=== PATIENT | female | born 1980 | race Two or more races ===

== ENCOUNTER 2024-02-29 15:30 | Inpatient (IN) | payer OTHER ==
[~2024-02-29] VITALS: Ht 157.5 cm; Wt 84.8 kg
[2024-03-11] MEDS ORDERED: LIDOCAINE HCL 1%/EPINEPHRINE 20ML VIAL IJ ONE (10:15)
[2024-03-11] MEDS ORDERED: METRONIDAZOLE/SODIUM CHLORIDE 500 MG/100 ML PIGGYBACK IV ONE (10:15)
[2024-03-11] MEDS ORDERED: CEFTRIAXONE SODIUM 2,000 MG VIAL IV ONE (10:15)
[2024-03-11] MEDS ORDERED: BUPIVACAINE HCL 30 ML VIAL IJ ONE (10:15)
[2024-03-11] MEDS ORDERED: OxyCODONE HCL 5 MG TABLET (ROXICODONE) PO PRN (11:45)
[2024-03-11] MEDS ORDERED: ONDANSETRON HCL 2 MG/ML VIAL IV PRN (11:45)
[2024-03-11] MEDS ORDERED: MORPHINE SULFATE 4 MG/ML CARTRIDGE IV PRN (11:45)
[2024-03-11] MEDS ORDERED: RINGERS SOLUTION,LACTATED 1,000 ML IV SCH (11:45)
[2024-03-11] MEDS ORDERED: OxyCODONE HCL/APAP UD (PERCOCET) PO PRN (11:45)
[2024-03-11] MEDS ORDERED: ACETAMINOPHEN 500 MG GEL..CAP PO SCH (12:00)
[2024-03-11] MEDS ORDERED: SIMETHICONE 125 MG CAPSULE PO SCH (13:00)
[2024-03-11] MEDS ORDERED: MORPHINE SULFATE 4 MG/ML VIAL IV ONE ×2 (13:10→13:40)
[2024-03-11] MEDS ORDERED: ONDANSETRON HCL 2 MG/ML VIAL IV ONE (13:20)
[2024-03-11 13:38] LABS: HEMOGLOBIN 12.2 g/dL (12.0-15.00); MEAN CELL VOLUME 78.7 fL (80.00-100.00); PLATELET COUNT 381 K/uL (150-450); RED CELL DISTRIBUTION WIDTH 16.2 % (11.5-14.5)
[2024-03-11 13:55] LABS: ALBUMIN 3.3 gm/dL (3.4-5.0); CALCIUM 8.8 mg/dL (8.5-10.1); CREATININE SERUM 0.61 mg/dL (0.55-1.02); GFR 107.05; MAGNESIUM 1.6 mg/dL (1.8-2.4); PHOSPHOROUS 3.6 mg/dL (2.5-4.9); POTASSIUM 4.39 mEq/L (3.5-5.1)
[2024-03-11] MEDS ORDERED: POLYETHYLENE GLYCOL 3350 17 GM BLIST.PACK PO SCH (17:00)
[2024-03-11] MEDS ORDERED: GABAPENTIN 300 MG CAPSULE PO SCH (17:00)
[2024-03-11] MEDS ORDERED: FAMOTIDINE/PF 20 MG/10 ML SYRINGE IV PUSH SCH (21:00)
[2024-03-11] MEDS ORDERED: MAGNESIUM SULFATE 50% 1,000 MG/2 ML VIAL IV ONE (21:45)
[2024-03-12 06:10] LABS: HEMATOCRIT 35.7 % (36.0-45.00); HEMOGLOBIN 11.8 g/dL (12.0-15.00); MEAN CELL VOLUME 78.8 fL (80.00-100.00); MEAN CORPUSCULAR HEMOGLOBIN 26.1 pg (27.00-32.0); MEAN CORPUSCULAR HGB CONC 33.1 g/dl (32.0-36.0); PLATELET COUNT 357 K/uL (150-450); RED BLOOD COUNT 4.53 M/uL (4.00-6.00); RED CELL DISTRIBUTION WIDTH 16.3 % (11.5-14.5)
[2024-03-12 06:38] LABS: CALCIUM 8.7 mg/dL (8.5-10.1); CREATININE SERUM 0.4 mg/dL (0.55-1.02); GFR 174.21; MAGNESIUM 2.5 mg/dL (1.8-2.4); PHOSPHOROUS 3.1 mg/dL (2.5-4.9); POTASSIUM 4.24 mEq/L (3.5-5.1)
[2024-03-12] MEDS ORDERED: MAGNESIUM CHLORIDE 70 MG TABLET.DR PO SCH (09:00)
[2024-03-12] MEDS ORDERED: LACTOBACILLUS ACIDOPHILUS 1 CAP CAP PO SCH (09:00)
[2024-03-12] MEDS ORDERED: NAPH,MB-DB/K PH,MBDB 1 PKT PACKET PO SCH (13:00)
[2024-03-12] MEDS ORDERED: ENOXAPARIN SODIUM 40 MG/0.4 ML SYRINGE SUBCUTANEO SCH (17:00)
[2024-03-12] MEDS ORDERED: FAMOtidine 20 MG TABLET PO SCH (17:00)
[2024-03-13 07:30] LABS: HEMOGLOBIN 11.2 g/dL (12.0-15.00); MEAN CELL VOLUME 79.1 fL (80.00-100.00); MEAN CORPUSCULAR HGB CONC 32.9 g/dl (32.0-36.0); PLATELET COUNT 307 K/uL (150-450); RED CELL DISTRIBUTION WIDTH 16.2 % (11.5-14.5)
[2024-03-13 07:52] LABS: ALBUMIN 2.9 gm/dL (3.4-5.0); CALCIUM 8.1 mg/dL (8.5-10.1); CREATININE SERUM 0.45 mg/dL (0.55-1.02); GFR 152.07; MAGNESIUM 1.9 mg/dL (1.8-2.4); PHOSPHOROUS 2.3 mg/dL (2.5-4.9); POTASSIUM 3.92 mEq/L (3.5-5.1)
[2024-03-13] MEDS ORDERED: NAPH,MB-DB/K PH,MBDB 1 PKT PACKET PO SCH (13:00)
[2024-03-13] MEDS ORDERED: POTASSIUM PHOS,M-BASIC-D-BASIC 9 MM in 0.9 % SODIUM CHLORIDE 250 ML IV ONE (13:00)
== END 2024-03-13 17:07 | disposition home or self-care (01) | DRG 331 ==
LOC: O/R 03-11 05:35 → SURG 03-11 07:00 → SURH 03-11 13:59 → SURG 03-11 15:00 → SURH 03-13 17:07
PROVIDERS: ADMIT Colon & Rectal Surgery; ATTEND Colon & Rectal Surgery
PROC: 0DBP4ZZ Excision of Rectum, Percutaneous Endoscopic Approach (ICD-10-PCS; 2024-03-11)
PROC: 0DJD8ZZ Inspection of Lower Intestinal Tract, Via Natural or Artificial Opening Endoscopic (ICD-10-PCS; 2024-03-11)
PROC: 0DTN4ZZ Resection of Sigmoid Colon, Percutaneous Endoscopic Approach (ICD-10-PCS; principal; 2024-03-11 07:00)
DX: K57.20 Diverticulitis of large intestine with perforation and abscess without bleeding (principal); R10.32 Left lower quadrant pain

== ENCOUNTER 2024-03-06 08:23 | Day surgery (SDC) | payer OTHER ==
[2024-03-06] MEDS ORDERED: ONDANSETRON HCL 2 MG/ML VIAL IV ONE (14:00)
[2024-03-06] MEDS ORDERED: DIPHENHYDRAMINE HCL 50 MG/ML VIAL 1ML IV ONE (14:00)
[2024-03-06] MEDS ORDERED: fentaNYL CITRATE 50 MCG/ML AMPUL IV PUSH ONE (14:00)
[2024-03-06] MEDS ORDERED: MIDAZOLAM HCL 2 MG/2 ML VIAL IV ONE (14:00)
== END 2024-03-06 15:45 | disposition home or self-care (01) ==
LOC: AMB-ENDOS 08:23 → CIR.AMB 15:00 → AMB-ENDOS 15:45
PROVIDERS: ATTEND Colon & Rectal Surgery
DX: K63.5 Polyp of colon (principal); K57.30 Diverticulosis of large intestine without perforation or abscess without bleeding; Z88.2 Allergy status to sulfonamides